=== PATIENT | female | born 2000 | race Caucasian/White ===

== ENCOUNTER 2021-04-29 18:34 | Emergency (ER) | payer BC ==
[~2021-04-29] VITALS: Ht 170.2 cm; Wt 77.0 kg
[2021-04-29] MEDS ORDERED: ACETAMINOPHEN 325MG TABLET PO ONE (19:30)
[2021-04-29] MEDS ORDERED: IBUPROFEN 400MG TABLET PO ONE (19:30)
[2021-04-29] MEDS ORDERED: LIDOCAINE 5% PATCH TOP SCH (19:30)
[2021-04-29] MEDS ORDERED: LIDO1ADH23 TP (22:37)
[2021-04-29] MEDS ORDERED: TOPUD PO (22:37)
[2021-04-29] MEDS ORDERED: IBUP-2028 MT (22:37)
[2021-04-29 22:50] VITALS: BP 118/76
== END 2021-04-29 23:00 | disposition home or self-care (01) ==
LOC: ER 18:34
DX: S05.12XA Contusion of eyeball and orbital tissues, left eye, initial encounter (principal); S10.93XA Contusion of unspecified part of neck, initial encounter; S40.012A Contusion of left shoulder, initial encounter; S20.20XA Contusion of thorax, unspecified, initial encounter; S40.022A Contusion of left upper arm, initial encounter; Y04.0XXA Assault by unarmed brawl or fight, initial encounter; Y07.03 Male partner, perpetrator of maltreatment and neglect; Y93.89 Activity, other specified; Y92.018 Other place in single-family (private) house as the place of occurrence of the external cause
CPT/HCPCS: 70486; 71046; 73030; 73060; 81025; 99284